=== PATIENT | female | born 1985 | race Caucasian/White ===

== ENCOUNTER 2016-11-25 15:02 | Outpatient (CLI) | payer MEDICAID | END 2016-11-25 15:03 | disposition home or self-care (01) | DX: D27.0 Benign neoplasm of right ovary (principal); N80.8 Other endometriosis ==

== ENCOUNTER 2017-01-21 09:15 | Emergency (ER) | payer MEDICAID | END 2017-01-21 11:21 | disposition home or self-care (01) | DX: H60.503 Unspecified acute noninfective otitis externa, bilateral (principal); Z87.891 Personal history of nicotine dependence ==

== ENCOUNTER 2017-02-26 14:02 | Emergency (ER) | payer MEDICAID ==
[2017-02-26] MEDS ORDERED: DEXAMETHASONE 10 MG/ML VIAL PO STA (15:10)
[2017-02-26] MEDS ORDERED: CHERRY SYRUP 10 ML UDC PO ONE (15:11)
[2017-02-26] MEDS ORDERED: DEXAMETHASONE 10 MG/ML VIAL ONE (15:11)
== END 2017-02-26 15:21 | disposition home or self-care (01) ==
DX: M23.91 Unspecified internal derangement of right knee (principal); J45.909 Unspecified asthma, uncomplicated; Z87.891 Personal history of nicotine dependence
CPT/HCPCS: 73564; 99283; A9270

== ENCOUNTER 2017-10-15 18:45 | Outpatient (CLI) | payer OTHER, MEDICAID | END 2017-10-15 18:46 | disposition critical access hospital (66) | LOC: EMS 18:45 | PROVIDERS: ATTEND Surgery | DX: R07.9 Chest pain, unspecified (principal); V89.2XXA Person injured in unspecified motor-vehicle accident, traffic, initial encounter; Y92.414 Local residential or business street as the place of occurrence of the external cause | CPT/HCPCS: A0425; A0429 ==

== ENCOUNTER 2017-10-15 19:07 | Emergency (ER) | payer OTHER, MEDICAID ==
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
[2017-10-15 22:13] VITALS: BP 118/68
--- NOTE | 2017-10-15 22:24 | XRAY Preliminary Report ---
Exam: XR CHEST 2 VIEW PA/LAT IMPRESSION: No acute abnormality. RADIA SITE ID: [id number]
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
== END 2017-10-15 22:12 | disposition home or self-care (01) ==
LOC: EDUNIT# → ED 19:07
DX: S20.219A Contusion of unspecified front wall of thorax, initial encounter (principal); V43.52XA Car driver injured in collision with other type car in traffic accident, initial encounter; Y92.488 Other paved roadways as the place of occurrence of the external cause
CPT/HCPCS: 71020; 99283

== ENCOUNTER 2017-12-19 13:51 | Emergency (ER) | payer MEDICAID ==
[2017-12-19 14:00] VITALS: BP 132/75
[2017-12-19] MEDS ORDERED: DEXAMETHASONE 10 MG/ML VIAL PO STA (14:14)
--- NOTE | 2017-12-19 14:17 | ED Physician Documentation ---
History of Present Illness - Stated complaint Stated Complaint: DIZZY - Chief complaint Chief Complaint: Neuro - History obtained from History obtained from: Patient - History of Present Illness Timing: How many days ago (3) - Additonal information Additional information: 32-year-old female has had a recent upper respiratory infection and felt that that is improved improving slightly she has had some persistent cough and now she has developed some acute dizziness. She is having this episodically and she has had some nausea associated with it. Review of Systems Constitutional: reports: Myalgias, Fatigue. denies: Fever Eyes: denies: Decreased vision Ears: denies: Ear pain Nose: reports: Rhinorrhea / runny nose, Congestion Throat: reports: Sore throat Cardiac: denies: Chest pain / pressure, Palpitations Respiratory: reports: Cough. denies: Dyspnea GI: reports: Nausea. denies: Abdominal Pain, Vomiting : denies: Dysuria, Frequency Skin: denies: Rash Musculoskeletal: denies: Neck pain, Back pain, Extremity pain Neurologic: reports: Headache (to the right parietal area a depression in the skull), Other (dizziness). 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: Oophrectomy - Present Medications Home Medications: Ambulatory Orders Medication Instructions Recorded Confirmed Azithromycin [Zithromax] 250 mg PO DAILY #6 tablet 12/19/17 Meclizine HCl [Motion Sickness 25 mg PO Q6HR PRN #20 tablet 12/19/17 Relief] - Allergies Allergies/Adverse Reactions: Allergies Allergy/AdvReac Type Severity Reaction Status Date / Time No Known Drug Allergies Allergy Verified 10/15/17 19:14 - Social History Does the pt smoke?: No Smoking Status: Never smoker Does the pt drink ETOH?: No Does the pt have substance abuse?: No - Immunizations Immunizations are current?: Yes - POLST Patient has POLST: No PD ED PE NORMAL - Vitals Vital signs reviewed: Yes (hypertensive) - General General: Alert and oriented X 3, No acute distress, Well developed/nourished - HEENT HEENT: Atraumatic, PERRL, EOMI, Pharynx benign, Other (inlfamation along the left umbo and not the right. 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, No motor deficit, No sensory deficit, Normal speech Eye Opening: Spontaneous Motor: Obeys Commands Verbal: Oriented GCS Score: 15 - Psych Psych: Normal mood, Normal affect Results - Vitals Vitals: Vital Signs - 24 hr 12/19/17 13:53 Temperature 36.2 C L Heart Rate 73 Respiratory 18 Rate Blood Pressure 132/75 H O2 Saturation 99 Oxygen O2 Source Room air - EKG (time done) 1403 Rate: Rate (enter#) (71) Rhythm: NSR Intervals: Wide QRS Compare to prior EKG: Old EKG unavailable Computer interpretation: Agree with computer PD MEDICAL DECISION MAKING - ED course Complexity details: reviewed old records, reviewed results, re-evaluated patient , considered differential, d/w patient ED course: 32-year-old female with a recent URI is now developed acute dizziness. She does have otitis on examination and this will be treated with dexamethasone and Zithromax and she is given some meclizine and a copy of Keith's maneuvers. Departure - Departure Disposition: 01 Home, Self Care Clinical Impression: Vertigo Otitis media Qualifiers: Otitis media type: suppurative Chronicity: acute Laterality: left Recurrence: not specified as recurrent Spontaneous tympanic membrane rupture: without spontaneous rupture Qualified Code(s): H66.002 - Acute suppurative otitis media without spontaneous rupture of ear drum, left ear Condition: Stable Instructions: ED Vertigo Unspecified, ED Otitis Media Acute Adult Follow-Up: Joao Sawant DO [Primary Care Provider] - Prescriptions: Meclizine HCl [Motion Sickness Relief] 25 mg PO Q6HR PRN #20 tablet PRN Reason: Dizziness Azithromycin [Zithromax] 250 mg PO DAILY #6 tablet
== END 2017-12-19 14:34 | disposition home or self-care (01) ==
LOC: ED 13:51
DX: R42 Dizziness and giddiness (principal); H66.002 Acute suppurative otitis media without spontaneous rupture of ear drum, left ear
CPT/HCPCS: 93005; 99283

== ENCOUNTER 2018-06-02 09:12 | Outpatient (CLI) | payer MEDICAID ==
--- NOTE | 2018-06-02 15:28 | Ultrasound Report ---
Procedure Date: 06/02/2018 Accession Number: [id number] / [id number] Procedure: US - Pelvic w/Transvaginal CPT Code: FULL RESULT: EXAM: PELVIC ULTRASOUND EXAM DATE: 06/02/2018 10:32 AM. CLINICAL HISTORY: BENIGN NEOPLASM OF RIGHT OVARY. COMPARISON: 08/23/2017. TECHNIQUE: Realtime transabdominal pelvic scan performed to identify the uterus and adnexa and as an overview of other pelvic structures, followed by transvaginal scan to provide greater detail of the uterus and adnexa, with static image documentation. FINDINGS: Uterus: 9.6 x 5.7 x 3.4 cm, volume 96.7 cc. Normal overall size and echotexture. Masses: None. Endometrium: 11 mm. Normal. Cervix: Trace fluid in the cervix. Right Ovary: 6.7 x 3.0 x 2.8 cm, volume 29 cc. Multiple complex nodules associated with the right ovary, the largest measuring 3.4 cm, grossly stable when compared to 08/23/17 US given differences in technique. Left oophorectomy. Free Fluid: Small. Other: None. IMPRESSION: Multiple complex nodules associated with right ovary, largest measuring 3.4 cm, grossly stable when compared to 08/23/17 US. RADIA
== END 2018-06-02 09:13 | disposition home or self-care (01) ==
LOC: DI 09:12
PROVIDERS: ATTEND Obstetrics & Gynecology
DX: D27.0 Benign neoplasm of right ovary (principal)
CPT/HCPCS: 76830; 76856

== ENCOUNTER 2018-09-10 14:27 | Outpatient (CLI) | payer MEDICAID ==
--- NOTE | 2018-09-11 12:33 | Ultrasound Report ---
Reason: ENCOUNTER FOR TEST,RESULT POSITIVE Procedure Date: 09/10/2018 Accession Number: [id number] / [id number] Procedure: US - OB First Trimester CPT Code: FULL RESULT: EXAM: FIRST TRIMESTER OBSTETRIC ULTRASOUND (Less than 11 weeks) EXAM DATE: 09/10/2018 03:16 PM. CLINICAL HISTORY: ENCOUNTER FOR TEST,RESULT POSITIVE. LMP: 07/14/2018. COMPARISONS: None. TECHNIQUE: Transabdominal and transvaginal ultrasound examination with static image documentation. CLINICAL DATES: EGA 8 weeks 2 days with GENNA 04/20/2019 based on last menstrual period. ASSESSMENT: Gestational Sac: Single intrauterine. Mean gestational sac diameter: 44 mm = 9 weeks 6 days. Embryo: CRL (crown-rump length) 19.5 mm = 8 weeks 4 days. Cardiac activity: 166 beats per minute. Yolk sac: 4.2 mm. Amniotic fluid: Not accurately assessed at this gestational age. Early placenta: Not visible at this gestational age. Other: There is a fundal perigestational fluid collection component measuring 1.8 x 1.0 x 0.9 cm on the left with the component on the right measuring 2.4 x 1.4 x 0.7 cm. MATERNAL STRUCTURES: Uterus: Anteverted. Unremarkable. Cervix: Closed. Right Ovary/Adnexa: The ovary measures 10.2 x 5.3 x 7.8 cm, volume 221 cc. The right ovary contains a partially calcified heterogeneous mass with an imaging appearance most consistent with dermoid/teratoma measuring up to 3.6 cm. Separately, a 3.9 x 3.6 x 3.7 cm endometrioma is demonstrated as is a cyst measuring up to 2.8 cm. Left Ovary/Adnexa: Not seen, reportedly surgically removed. Free Fluid: There is a small amount of free fluid. Other: None. IMPRESSION: 1. Single viable intrauterine at EGA 8 weeks 4 days with GENNA 04/18/2019 based on crown-rump length, which is concordant with clinical dates. 2. Assigned dating is GENNA 04/20/2019 based on last menstrual period. 3. Perigestational fluid collection as described. 4. Right adnexal masses including a suspected dermoid/teratoma, reportedly known endometrioma and simple appearing cyst. RADIA The above findings perigestational fluid collection and adnexal masses were discussed with the nurse of Naomi Duke by Dr. Dominick Varner at 12:31 hrs on 09/11/18.
== END 2018-09-10 14:28 | disposition home or self-care (01) ==
LOC: DI 14:27
PROVIDERS: ATTEND Obstetrics & Gynecology
DX: Z32.01 Encounter for pregnancy test, result positive (principal)
CPT/HCPCS: 76801; 76817

== ENCOUNTER 2018-09-28 08:47 | Outpatient (CLI) | payer MEDICAID ==
[2018-09-28 09:18] LABS: MUDS CUTOFF CONCENTRATIONS CUTOFF CONC BELOW:
[2018-09-28 09:23] LABS: BASOPHILS % (AUTO) 0.4 %; EOSINOPHILS # (AUTO) 0.2 10^3/uL (0.0-0.7); EOSINOPHILS % (AUTO) 1.4 %; HGB - HEMOGLOBIN 13.2 g/dL (12.0-16.0); LYMPHOCYTES % (AUTO) 16.8 %; MEAN CORPUSCULAR HEMOGLOBIN 30.3 pg (27.0-31.0); MEAN CORPUSCULAR HGB CONC 34.5 g/dL (32.0-36.0); MEAN PLATELET VOLUME 7.7 fL (7.9-10.8); MONOCYTES # (AUTO) 0.5 10^3/uL (0.0-1.0); MONOCYTES % (AUTO) 4.4 %; PLT - PLATELET COUNT 280 10^3/uL (130-450); RED BLOOD COUNT 4.36 10^6/uL (4.20-5.40); RED CELL DISTRIBUTION WIDTH 13.8 % (12.0-15.0); WHITE BLOOD COUNT 11.7 x10^3/uL (4.8-10.8)
[2018-09-28 09:33] LABS: BILIRUBIN,URINE NEGATIVE (NEGATIVE); GLUCOSE, URINE (UA) NEGATIVE (NEGATIVE); KETONES,URINE (UA) NEGATIVE (NEGATIVE); LEUKOCYTE ESTERASE, URINE SMALL (NEGATIVE); NITRITE,URINE NEGATIVE (NEGATIVE); OCCULT BLOOD,URINE NEGATIVE (NEGATIVE); PH,URINE 6.5 PH (5.0-7.5); PROTEIN,URINE NEGATIVE (NEGATIVE); UROBILINOGEN,URINE 0.2 (NORMAL) E.U./dL (NORMAL)
[2018-09-28 09:40] LABS: ALBUMIN 4.5 g/dL (3.2-5.5); ALBUMIN/GLOBULIN RATIO 1.3 (1.0-2.2); BILIRUBIN,TOTAL 0.7 mg/dL (0.2-1.0); CALCIUM 9.3 mg/dL (8.5-10.3); CREATININE 0.6 mg/dL (0.4-1.0); TOTAL PROTEIN 8.1 g/dL (6.7-8.2); URIC ACID 3.8 mg/dL (2.6-7.2)
[2018-09-28 09:44] LABS: BACTERIA,URINE Few /HPF (None Seen); CLARITY,URINE CLEAR (CLEAR); RBC,URINE 0-5 /HPF (0-5); SQUAMOUS EPITHELIAL CELL,UR FEW Squamous (<= Few)
[2018-09-28 09:45] LABS: AMPHETAMINE SCREEN,URINE NEGATIVE (NEGATIVE); BENZODIAZEPINES SCREEN, URINE NEGATIVE (NEGATIVE); COCAINE SCREEN URINE NEGATIVE (NEGATIVE); METHADONE SCREEN, URINE NEGATIVE (NEGATIVE); METHAMPHETAMINES SCREEN, URINE NEGATIVE (NEGATIVE); OPIATE SCREEN, URINE NEGATIVE (NEGATIVE); OXYCODONE SCREEN, URINE NEGATIVE (NEGATIVE); PROPOXYPHENE SCREEN, URINE NEGATIVE (NEGATIVE); TRICYCLIC ANTIDEPRESSANT,URINE NEGATIVE (NEGATIVE)
[2018-09-29 11:33] LABS: HEPATITIS C ANTIBODY NON-REACTIVE (NON-REACTIVE)
[2018-09-29 12:21] LABS: HEPATITIS B SURFACE ANTIGEN NON-REACTIVE (NON-REACTIVE)
[2018-09-29 16:06] LABS: HIV AG/AB 4TH GEN NON-REACTIVE (NON-REACTIVE)
== END 2018-09-28 08:48 | disposition home or self-care (01) ==
LOC: LAB 08:47
PROVIDERS: ATTEND Obstetrics & Gynecology
DX: O09.899 Supervision of other high risk pregnancies, unspecified trimester (principal); Z36.9 Encounter for antenatal screening, unspecified
CPT/HCPCS: 36415; 80053; 80306; 81001; 81599; 84550; 85025; 86592; 86762; 86803; 86850; 86900; 86901; 87086; 87340; 87389

== ENCOUNTER 2018-12-07 13:30 | Outpatient (CLI) | payer MEDICAID ==
--- NOTE | 2018-12-08 14:20 | Ultrasound Report ---
Reason: SUPERVISION OF OTHER HIGH RISK ,UNSPECIFI Procedure Date: 12/07/2018 Accession Number: [id number] / [id number] Procedure: US - OB Detailed Eval CPT Code: FULL RESULT: EXAM: COMPLETE OBSTETRICAL ULTRASOUND EXAM DATE: 12/07/2018 01:58 PM. CLINICAL HISTORY: anatomic survey. COMPARISON: First trimester OB ultrasound 09/10/2018.. TECHNIQUE: Real-time sonographic evaluation of the fetus performed by the cable installation manager. Multiple desk representative static images were saved for review. DATING: Established EGA 20 weeks 6 days with GENNA 04/20/2019 based on physician stated dating. EGA 20 weeks 6 days with GENNA 04/20/2019 based on LMP. EGA 22 weeks 1 day with GENNA 04/11/2019 based on the current ultrasound. GENERAL EVALUATION Cook . Cardiac activity: 132 bpm. movement: Visualized. Presentation: Variable. Placenta: Right posterior position. No evidence for previa. Umbilical cord: 3 vessel cord. Central placental cord origin. Amniotic fluid: Subjectively normal. MVP 4.6 cm. ASHLEY: 16.62. BIOMETRY Bi-Parietal Diameter (BPD): 5.32 cm, 22 weeks 1 day. Head Circumference (HC): 20.96 cm, 23 weeks 0 days. Abdominal Circumference (AC): 17.61 cm, 22 weeks 3 days. Femur Length (FL): 3.54 cm, 21 weeks 1 days. Estimated Weight: 471 g, 94 percentile for weeks/days. ANATOMY The intracranial structures, profile, face/nose/lips, spine, 4 chamber heart and outflow tracts, stomach, abdominal wall and cord insertion, diaphragm, kidneys, bladder, and extremities were visualized and demonstrate no abnormality. MATERNAL STRUCTURES Uterus: Unremarkable. Cervix: Long and closed. Transabdominal length 5.64 cm. Right ovary/adnexa: Unremarkable. Left ovary/adnexa: Unremarkable. Free fluid: None. IMPRESSION: 1. Cook live intrauterine with gestational age 20 weeks 6 days based on physician stated assigned dating and LMP. 2. Estimated weight is at the 94th percentile for assigned dating. size is greater than expected for gestational age. The fetus is at risk for macrosomia. 3. Normal anatomic survey. No anatomic abnormalities are detected at this time. RADIA
== END 2018-12-07 13:31 | disposition home or self-care (01) ==
LOC: DI 13:30
PROVIDERS: ATTEND Obstetrics & Gynecology
DX: O09.899 Supervision of other high risk pregnancies, unspecified trimester (principal)
CPT/HCPCS: 76811

== ENCOUNTER 2018-12-31 07:53 | Outpatient (CLI) | payer MEDICAID ==
[2018-12-31 08:18] LABS: HGB - HEMOGLOBIN 12.2 g/dL (12.0-16.0); MEAN CORPUSCULAR HEMOGLOBIN 29.8 pg (27.0-31.0); MEAN CORPUSCULAR HGB CONC 34.2 g/dL (32.0-36.0); MEAN CORPUSCULAR VOLUME 87.1 fL (81.0-99.0); MEAN PLATELET VOLUME 7.7 fL (7.9-10.8); RED BLOOD COUNT 4.1 10^6/uL (4.20-5.40); RED CELL DISTRIBUTION WIDTH 14.6 % (12.0-15.0)
[2018-12-31 08:34] LABS: HB2 TOTAL 13.4 g/dL; HEMOGLOBIN A1C 0.36 g/dL; HEMOGLOBIN A1C % 4.6 % (4.6-6.2)
== END 2018-12-31 07:54 | disposition home or self-care (01) ==
LOC: LAB 07:53
PROVIDERS: ATTEND Obstetrics & Gynecology
DX: Z34.80 Encounter for supervision of other normal pregnancy, unspecified trimester (principal)
CPT/HCPCS: 36415; 82951; 82952; 83036; 85027; 86850

== ENCOUNTER 2019-02-22 16:03 | Outpatient (CLI) | payer MEDICAID ==
[2019-02-22 16:37] LABS: CREATININE,URINE 42.3 mg/dL; PROTEIN/CREATININE RATIO,URINE 0.2 (<=0.2)
== END 2019-02-22 16:04 | disposition home or self-care (01) ==
LOC: LAB 16:03
PROVIDERS: ATTEND Obstetrics & Gynecology
DX: Z36.8A Encounter for antenatal screening for other genetic defects (principal); O09.93 Supervision of high risk pregnancy, unspecified, third trimester
CPT/HCPCS: 36415; 81220; 81243; 81329; 81599; 82570; 84156

== ENCOUNTER 2019-09-06 09:50 | Outpatient (CLI) | payer MEDICAID ==
[2019-09-06] MEDS ORDERED: GADOBUTROL 15 MMOL/15 ML VIAL ONE (10:34)
[2019-09-06] MEDS ORDERED: GADOBUTROL 15 MMOL/15 ML VIAL IVP ONE (10:58)
--- NOTE | 2019-09-06 13:37 | MRI Report ---
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 CLINICAL HISTORY: Headache. Gorlin syndrome. COMPARISON: None. TECHNIQUE: Multiplanar, multisequence T1-weighted and fluid-sensitive MR sequences of the brain were performed before and after administration of intravenous contrast. Sequences optimized for routine evaluation. Other: None. IV Contrast: Without and with 12.5 mL IV Gadavist. FINDINGS: Brain Volume: Normal for age. Parenchyma: No restricted diffusion to suggest acute or recent ischemic infarct and no evidence for cerebral hemorrhage, mass effect or midline shift. Hypointensity and mild thickening of the tentorium which may represent dural calcifications. Chronic linear foci of encephalomalacia in the left posterior cerebellum are present consistent with at least 3 or 4 small foci of chronic ischemic infarct. No midline developmental anomaly. Intact corpus callosum. No Chiari malformation. There are 6 or 7 scattered punctate foci of nonspecific white matter T2 hyperintensity in the frontal lobes, nonspecific changes which may represent chronic post inflammatory or post ischemic gliosis. Cerebral white matter otherwise appears unremarkable. No intracranial enhancing solid mass. No abnormal brain parenchymal enhancement. 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 Ventricles/Cisterns: No hydrocephalus. No abnormal extra-axial fluid collection or hemorrhage. Orbits: Symmetric and unremarkable. Sella Turcica: 5 mm T2 hyperintensity with hypoenhancement or nonenhancement at the posterior aspect of the pituitary on the left without significant mass effect. Significance is uncertain. This could be a small incidental cyst or microadenoma. No adverse local mass effect, findings in the region of the pituitary fossa, suprasellar cistern and cavernous sinuses otherwise appear unremarkable. IAC: Symmetric and unremarkable. Vasculature: Normal signal flow void is seen in the major arterial structures at the skull base. The dural sinuses are patent and enhance normally. Sinuses: Prominent retention cyst in the inferior right maxillary sinus. Bones: Circumscribed fluid signal cyst or cyst-like structure up to 1.5 cm in the left mandible. This is not fully characterized on this study, however. Other: None. IMPRESSION: 1. No acute intracranial abnormality. 2. 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 3. 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 4. Up to 5 mm lesion of the left posterior pituitary that may be a cyst or microadenoma. 5. Probable up to 1.5 cm cyst of the left posterior mandible. 6. Right inferior maxillary retention cyst. RADIA
== END 2019-09-06 09:51 | disposition home or self-care (01) ==
LOC: DI 09:50
PROVIDERS: ATTEND Family Medicine
DX: E23.7 Disorder of pituitary gland, unspecified (principal); J34.1 Cyst and mucocele of nose and nasal sinus; Z86.73 Personal history of transient ischemic attack (TIA), and cerebral infarction without residual deficits
CPT/HCPCS: 70553; A9585

== ENCOUNTER 2020-02-15 07:28 | Emergency (ER) | payer MEDICAID ==
[2020-02-15 07:43] VITALS: BP 136/89
--- NOTE | 2020-02-15 07:56 | ED Physician Documentation ---
PD HPI LOWER EXT INJURY - Stated complaint Stated Complaint: RT FOOT INJURY - Chief complaint Chief Complaint: Trauma Ext - History obtained from History obtained from: Patient - History of Present Illness PD HPI LOW EXT INJURY LOCATION: Right, Foot Type of injury: Fall, Twist Where injury occurred: Home Timing - onset: Last night Timing - duration: Hours Timing - details: Abrupt onset, Still present Improved by: Rest, Immobilization Worsened by: Moving, Palpating Associated symptoms: No: Weakness, Numbness, Tingling, Swelling Contributing factors: No: Anticoagulated Similar symptoms before: Has not had sx before Recently seen: Not recently seen - Additional information Additional information: 34-year-old female was in her home last night when she was attempting to protect her From her Citizen [place] bulldog puppy she stood up and tripped falling onto her extended right foot on the lateral aspect. She feels that she strained her foot and has pain across the sole of her foot starting from the lateral aspect of the foot. She is able to bear some weight on this with pain. Her level of pain without weightbearing is tolerable. 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 - Present Medications Home Medications: Ambulatory Orders Medication Instructions Recorded Confirmed Azithromycin [Zithromax] 250 mg PO DAILY #6 tablet 12/19/17 Meclizine HCl [Motion Sickness 25 mg PO Q6HR PRN #20 tablet 12/19/17 Relief] - Allergies Allergies/Adverse Reactions: Allergies Allergy/AdvReac Type Severity Reaction Status Date / Time No Known Drug Allergies Allergy Verified 02/15/20 07:43 - Social History Does the pt smoke?: No Smoking Status: Never smoker Does the pt drink ETOH?: No Does the pt have substance abuse?: No - Immunizations Immunizations are current?: Yes - POLST Patient has POLST: No PD ED PE NORMAL - Vitals Vital signs reviewed: Yes (hypertensive ) - General General: Alert and oriented X 3, No acute distress, Well developed/nourished - HEENT HEENT: Atraumatic, PERRL, EOMI - Respiratory Respiratory: No respiratory distress - Derm Derm: Normal color, Warm and dry, No rash - Extremities Extremities: Other (There is no tenderness to the proximal 5th metatarsal. There is no swelling appreciated. There is some tenderness to the mid/distal shaft of the 5th and extending to the sole of the foot (R)) - Neuro Neuro: Alert and oriented X 3, spinning room worker 2-12 intact, No motor deficit, No sensory deficit, Normal speech Eye Opening: Spontaneous Motor: Obeys Commands Verbal: Oriented GCS Score: 15 - Psych Psych: Normal mood, Normal affect Results - Vitals Vitals: Vital Signs - 24 hr 02/15/20 07:37 Temperature 36.8 C Heart Rate 91 Respiratory 16 Rate Blood Pressure 136/89 H O2 Saturation 98 Oxygen O2 Source Room air - Rads (name of study) foot Radiology: Prelim report reviewed (Impression: 1. No acute fracture. 2 Prior fusion of the navicular and medial cuneiform with no evidence of hardware failure or loosening.), EMP read indepedently, See rad report PD MEDICAL DECISION MAKING - ED course Complexity details: reviewed old records, reviewed results, re-evaluated patient, considered differential, d/w patient ED course: 34-year-old female with a twisting injury to her right foot is no evidence of fracture on her previously operated foot. She is diagnosed with a sprain and placed into a walking boot. Departure - Departure Disposition: 01 Home, Self Care Clinical Impression: Sprain of right foot Qualifiers: Encounter type: initial encounter Qualified Code(s): S93.601A - Unspecified sprain of right foot, initial encounter Condition: Stable Instructions: ED Sprain Foot Follow-Up: Joao Sawant DO [Primary Care Provider] - Discharge Date/Time: 02/15/20 08:47
--- NOTE | 2020-02-15 08:47 | XRAY Report ---
Reason: extention injury to lateral foot Procedure Date: 02/15/2020 Accession Number: [id number] / [id number] Procedure: XR - Foot 3 View RT CPT Code: Final Report FULL RESULT: EXAM: RIGHT FOOT RADIOGRAPHY EXAM DATE: 02/15/2020 08:06 AM. CLINICAL HISTORY: Extention injury to lateral foot. COMPARISON: None. TECHNIQUE: 3 views. FINDINGS: Bones: Normal. No fractures or bone lesions. Joints: Fusion of the navicular and medial cuneiform with [address] Moderate degenerative changes at the calcaneal cuboid joint. Soft Tissues: Normal. No soft tissue swelling. IMPRESSION: 1. No acute fracture. 2. Prior fusion of the navicular and medial cuneiform with no evidence of hardware failure or loosening. RADIA
== END 2020-02-15 08:47 | disposition home or self-care (01) ==
LOC: ED 07:28
DX: S93.601A Unspecified sprain of right foot, initial encounter (principal); W01.0XXA Fall on same level from slipping, tripping and stumbling without subsequent striking against object, initial encounter; Y92.009 Unspecified place in unspecified non-institutional (private) residence as the place of occurrence of the external cause
CPT/HCPCS: 99282; 99283

== ENCOUNTER 2020-05-20 10:59 | Outpatient (CLI) | payer MEDICAID ==
[2020-05-20 11:45] LABS: THYROID STIMULATING HORMONE 1.47 uIU/mL (0.34-5.60)
[2020-05-20 11:47] LABS: HB2 TOTAL 13.5 g/dL; HEMOGLOBIN A1C 0.49 g/dL; HEMOGLOBIN A1C % 5.5 % (4.6-6.2)
[2020-05-20 11:53] LABS: CHOL/HDL RATIO 5.6 (<4.4); CHOLESTEROL 214 mg/dL; HDL CHOLESTEROL 38 mg/dL; LDL CHOLESTEROL,CALCULATED 125 mg/dL; LDL/HDL RATIO 3.3 (<4.4); VLDL CHOLESTEROL 51 mg/dL
[2020-05-20 12:14] LABS: FOLLICLE STIMULATING HORMONE 7.97 mIU/mL
== END 2020-05-20 11:00 | disposition home or self-care (01) ==
LOC: LAB 10:59
PROVIDERS: ATTEND Obstetrics & Gynecology
DX: N92.6 Irregular menstruation, unspecified (principal); E66.9 Obesity, unspecified
CPT/HCPCS: 36415; 80061; 83001; 83036; 83721; 84443

== ENCOUNTER 2020-06-02 08:05 | Outpatient (CLI) | payer MEDICAID ==
[2020-06-02 08:39] LABS: CHOL/HDL RATIO 5.7 (<4.4); CHOLESTEROL 211 mg/dL; HDL CHOLESTEROL 37 mg/dL; LDL CHOLESTEROL,CALCULATED 137 mg/dL; LDL/HDL RATIO 3.7 (<4.4); VLDL CHOLESTEROL 37 mg/dL
== END 2020-06-02 08:06 | disposition home or self-care (01) ==
LOC: LAB 08:05
PROVIDERS: ATTEND Obstetrics & Gynecology
DX: Z00.01 Encounter for general adult medical examination with abnormal findings (principal)
CPT/HCPCS: 36415; 80061; 83721

== ENCOUNTER 2020-06-09 15:37 | Outpatient (CLI) | payer MEDICAID ==
--- NOTE | 2020-06-09 17:31 | Ultrasound Report ---
PROCEDURE: Pelvic w/Transvaginal INDICATIONS: IRREGULAR MENSES TECHNIQUE: Real-time scanning was performed of the pelvic organs, with image documentation. Additional endovagi nal scanning was necessary due to incomplete visualization of the adnexal and endometrial structures by transabdominal scanning. COMPARISON: Pelvic ultrasound 06/02/2018 FINDINGS: Transabdominal scanning: Limited scanning through the kidneys shows no hydronephrosis. No pathologi c free abdominal or pelvic fluid. Endovaginal scanning: Uterus: Uterus is normal in size at 9.2 x 4.1 x 6.0 cm. The endometrium measures 7 mm in combined t hickness. Adjacent calcification is present measuring 4 x 3 x 4 mm. Ovaries: Right ovary measures 5.0 x 3.2 x 4.7 cm. There are multiple solid-appearing foci of echogen icity the largest measuring 2.2 x 1.5 x 1.8 cm. The left ovary has been removed. IMPRESSION: Multiple solid-appearing masses within the right ovary as above. These can represent areas of endomet rioma or potentially complex hemorrhagic cyst. No priors are available for comparison. Short interval imaging follow-up in 6 weeks is recommended for further evaluation. Reviewed by: Kristin Leblanc MD on 06/09/2020 5:30 PM PDT Approved by: Kristin Leblanc MD on 06/09/2020 5:30 PM PDT Station ID: [id number]
== END 2020-06-09 15:38 | disposition home or self-care (01) ==
LOC: DI 15:37
PROVIDERS: ATTEND Obstetrics & Gynecology
DX: R93.89 Abnormal findings on diagnostic imaging of other specified body structures (principal)
CPT/HCPCS: 76830; 76856

== ENCOUNTER 2020-10-08 10:53 | Emergency (ER) | payer MEDICAID ==
--- NOTE | 2020-10-08 11:20 | ED Physician Documentation ---
PD HPI HEENT - Stated complaint Stated Complaint: DIZZINESS - Chief complaint Chief Complaint: General - History obtained from History obtained from: Patient - History of Present Illness Timing - onset: Yesterday Timing - duration: Days (2) Timing - details: Gradual onset, Still present Location: Right ear Improves: Other (holding still) Worsens: Position (moving head) Associated symptoms: Other (some decreased hearing right ear.). No: Fever, Congestion, Swollen nodes, Facial swelling Similar symptoms before: Diagnosis (ear infection) Recently seen: Not recently seen Review of Systems Constitutional: denies: Fever, Chills Eyes: denies: Decreased vision, Photophobia Ears: reports: Loss of hearing. denies: Drainage/discharge, Tinnitus/ringing Nose: denies: Rhinorrhea / runny nose, Congestion, Sinus pressure / pain GI: reports: Nausea. 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 - Present Medications Home Medications: Ambulatory Orders Medication Instructions Recorded Confirmed Azithromycin [Zithromax] 250 mg PO DAILY #6 tablet 12/19/17 Meclizine HCl [Motion Sickness 25 mg PO Q6HR PRN #20 tablet 12/19/17 Relief] Amoxicillin 500 mg PO TID #21 capsule 10/08/20 Cetirizine [ZyrTEC] 10 mg PO DAILY #15 tablet 10/08/20 Meclizine HCl [Antivert] 25 mg PO Q8H PRN #20 tablet 10/08/20 dexAMETHasone [Decadron] 4 mg PO DAILY #5 tablet 10/08/20 - Allergies Allergies/Adverse Reactions: Allergies Allergy/AdvReac Type Severity Reaction Status Date / Time No Known Drug Allergies Allergy Verified 10/08/20 11:02 - Social History Does the pt smoke?: No Smoking Status: Never smoker Does the pt drink ETOH?: No Does the pt have substance abuse?: No - Immunizations Immunizations are current?: Yes - POLST Patient has POLST: No PD ED PE NORMAL - Vitals Vital signs reviewed: Yes - General General: Alert and oriented X 3, No acute distress, Well developed/nourished - HEENT HEENT: PERRL, EOMI (with some nystagmus to the right.), Pharynx benign. No: Ears normal (left is okay; right with fluid behind the TM and also some redness of it. No perforation nor drainage. No tenderness to the mastoid area.) Results - Vitals Vitals: Vital Signs - 24 hr 10/08/20 10/08/20 10:56 12:59 Temperature 36.6 C Heart Rate 72 70 Respiratory 16 18 Rate Blood Pressure 116/77 115/68 O2 Saturation 98 99 Oxygen O2 Source Room air PD MEDICAL DECISION MAKING - ED course Complexity details: considered differential (has OM and presume this is related to some pressure in the inner ear and then the vertigo. ), d/w patient Departure - Departure Disposition: 01 Home, Self Care Clinical Impression: Otitis media, Positional vertigo Condition: Stable Instructions: ED Otitis Media Acute Adult, ED Vertigo Unspecified Follow-Up: Joao aSwant DO [Primary Care Provider] - Prescriptions: Amoxicillin 500 mg PO TID #21 capsule Meclizine HCl [Antivert] 25 mg PO Q8H PRN #20 tablet PRN Reason: Vertigo dexAMETHasone [Decadron] 4 mg PO DAILY #5 tablet Cetirizine [ZyrTEC] 10 mg PO DAILY #15 tablet Comments: It does look like some redness and swelling of the right eardrum. We will treat this as an early infection and fluid buildup. This can easily be affecting your inner ear causing your vertigo as well. Meclizine every 6-8 hours if needed for vertigo/dizziness. Amoxicillin 3 times a day for a week and Decadron daily for 5 more days. Cetirizine antihistamine daily for a week or 2. These are all meant to decrease the infection and inflammation and fluid in the middle and inner ears to decrease your symptoms. I would anticipate improvement in your symptoms over the next several days and resolved over 3 to 5 days. Recheck if not improving in that timeframe. Discharge Date/Time: 10/08/20 12:59
[2020-10-08] MEDS ORDERED: AMOXICILLIN 250 MG CAPSULE PO STA (12:10)
[2020-10-08] MEDS ORDERED: DEXAMETHASONE 10 MG/ML VIAL PO STA (12:10)
[2020-10-08] MEDS ORDERED: CETIRIZINE 10 MG TABLET PO STA (12:10)
[2020-10-08] MEDS ORDERED: MECLIZINE 12.5 MG TABLET PO STA (12:10)
[2020-10-08] MEDS ORDERED: CHERRY SYRUP 10 ML UDC PO ONE (12:10)
[2020-10-08 12:59] VITALS: BP 115/68
== END 2020-10-08 12:59 | disposition home or self-care (01) ==
LOC: ED 10:53
DX: H66.91 Otitis media, unspecified, right ear (principal); R42 Dizziness and giddiness
CPT/HCPCS: 99283; 99284; A9270

== ENCOUNTER 2020-12-31 15:19 | Outpatient (CLI) | payer MEDICAID ==
--- NOTE | 2021-01-01 08:52 | Ultrasound Report ---
PROCEDURE: Pelvic w/Transvaginal INDICATIONS: PELVIC MASS Additional history: Gorlin syndrome. TECHNIQUE: Real-time scanning was performed of the pelvic organs, with image documentation. Additional endovagi nal scanning was necessary due to incomplete visualization of the adnexal and endometrial structures by transabdominal scanning. COMPARISON: Pelvic ultrasound 06/09/2020, 06/02/2018. FINDINGS: Small amount of free fluid in the pelvis. Uterus: Uterus is anteverted and normal in size at 9.2 x 6.6 x 4.6 cm, volume of 145 cc. No fibroid s seen. The endometrium measures 12 mm in combined thickness. Echogenic focus without posterior acous tic shadowing within the endometrium measuring 4 mm. This likely represents a small calcification and appears unchanged. Ovaries: Right ovary measures 4.7 x 3.9 x 2.8 cm, volume of 27 cc. 1) Anechoic cyst measuring 2.1 cm. 2) Irregular crenulated appearing cyst measuring 2.2 cm. 3) Solid and cystic mass measuring at 2.9 x 2.3 x 1.5 cm. Internal calcifications. 4) Predominately solid mass measuring 2.9 x 2.6 x 2.5 cm. Internal calcifications. 5) Right adnexa or exophytic ovarian solid mass measuring 3.6 x 3.6 x 3.2 cm. Internal calcifications . Left ovary is surgically absent. Left adnexa is unremarkable. IMPRESSION: 1. Several right ovarian masses and cysts are again seen. Largest mass measures approximately 3.6 cm. It is difficult to directly compare these lesions due to shadowing from internal calcifications. -If clinically indicated MRI of the pelvis with IV contrast could be performed for further characteri zation. 2. Left ovary is surgically absent. 3. Endometrium measures 12 mm. Reviewed by: Seun Meadows MD on 01/01/2021 8:51 AM PST Approved by: Seun Meadows MD on 01/01/2021 8:51 AM PST Station ID: [id number]
== END 2020-12-31 15:20 | disposition home or self-care (01) ==
LOC: DI 15:19
PROVIDERS: ATTEND Obstetrics & Gynecology Gynecologic Oncology
DX: R19.00 Intra-abdominal and pelvic swelling, mass and lump, unspecified site (principal); N83.201 Unspecified ovarian cyst, right side; N83.8 Other noninflammatory disorders of ovary, fallopian tube and broad ligament

== ENCOUNTER 2022-01-13 08:50 | Emergency (ER) | payer MEDICAID ==
[2022-01-13 08:58] VITALS: BP 122/96
--- NOTE | 2022-01-13 09:01 | ED Physician Documentation ---
History of Present Illness - Stated complaint Stated Complaint: EAR PX - Chief complaint Chief Complaint: Heent - History obtained from History obtained from: Patient - Additonal information Additional information: About a weeks now worth of bilateral ear pain and vertigo especially if she lays with her right ear down. There is full feeling in her ears. No URI symptoms. Similar episodes previously with otitis media and otitis externa. She tried meclizine for the vertigo but It makes her odom. 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 - Present Medications Home Medications: Ambulatory Orders Medication Instructions Recorded Confirmed Azithromycin [Zithromax] 250 mg PO DAILY #6 tablet 12/19/17 Meclizine HCl [Motion Sickness 25 mg PO Q6HR PRN #20 tablet 12/19/17 Relief] Amoxicillin 500 mg PO TID #21 capsule 10/08/20 Cetirizine [ZyrTEC] 10 mg PO DAILY #15 tablet 10/08/20 Meclizine HCl [Antivert] 25 mg PO Q8H PRN #20 tablet 10/08/20 dexAMETHasone [Decadron] 4 mg PO DAILY #5 tablet 10/08/20 Metoclopramide [Reglan] 10 mg PO Q6H PRN #20 tablet 01/13/22 Neomycin/Polymyx/Hc Otic Drops 4 drops OT TID #1 bottle 01/13/22 [Cortisporin Ear Susp] - Allergies Allergies/Adverse Reactions: Allergies Allergy/AdvReac Type Severity Reaction Status Date / Time No Known Drug Allergies Allergy Verified 01/13/22 08:56 - Social History Does the pt smoke?: No Smoking Status: Never smoker Does the pt drink ETOH?: No Does the pt have substance abuse?: No - Immunizations Immunizations are current?: Yes - POLST Patient has POLST: No PD ED PE NORMAL - Vitals Vital signs reviewed: Yes - General General: Alert and oriented X 3, No acute distress - HEENT HEENT: PERRL, EOMI, Other (TMs appear normal bilaterally, mild otitis externa bilaterally potentially left slightly worse than right. No significant closure of the canals though.) - Neck Neck: Supple, no meningeal sign, No bony TTP - Neuro Neuro: Alert and oriented X 3, Normal speech - Psych Psych: Normal mood, Normal affect Results - Vitals Vitals: Vital Signs - 24 hr 01/13/22 08:57 Temperature 37.1 C Heart Rate 77 Respiratory 18 Rate Blood Pressure 122/96 H O2 Saturation 97 Oxygen O2 Source Room air Departure - Departure Disposition: Home, Self Care Clinical Impression: Vertigo Otitis externa Qualifiers: Otitis externa type: unspecified type Chronicity: acute Laterality: bilateral Qualified Code(s): H60.503 - Unspecified acute noninfective otitis externa, bilateral Condition: Good Record reviewed to determine appropriate education?: Yes Instructions: ED Vertigo Unspecified, ED Otitis Externa Prescriptions: Neomycin/Polymyx/Hc Otic Drops [Cortisporin Ear Susp] 4 drops OT TID #1 bottle Metoclopramide [Reglan] 10 mg PO Q6H PRN #20 tablet PRN Reason: Vertigo Comments: I sent your prescriptions electronically to [facility] in [place]. You can take the metoclopramide as needed for vertigo, the eardrops should kick in after the first few days and the vertigo should get better at that point. Return for new or worsening symptoms.
== END 2022-01-13 09:08 | disposition home or self-care (01) ==
LOC: ED 08:50
DX: H60.503 Unspecified acute noninfective otitis externa, bilateral (principal); R42 Dizziness and giddiness
CPT/HCPCS: 99282

== ENCOUNTER 2022-02-28 08:52 | Emergency (ER) | payer MEDICAID ==
[2022-02-28 09:01] VITALS: BP 152/101
--- NOTE | 2022-02-28 09:17 | ED Physician Documentation ---
History of Present Illness - Stated complaint Stated Complaint: DIZZINESS/EAR PX - Chief complaint Chief Complaint: Heent - History obtained from History obtained from: Patient - History of Present Illness Timing: How many days ago (2-3) Pain level max: 3 Pain level now: 3 - Additonal information Additional information: Patient is a 36-year-old female who presents to the emergency department complaining of bilateral ear fullness. She states that she has had recurrent vertigo as well. Worse with movement, better with rest. No nausea, vomiting or diarrhea. No abdominal pain. Patient is not . She states that this is happened 4-5 times in the past year. Has not seen ENT. No fevers. No chills. No trauma. No headaches. 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: Oophrectomy - Present Medications Home Medications: Ambulatory Orders Medication Instructions Recorded Confirmed Azithromycin [Zithromax] 250 mg PO DAILY #6 tablet 12/19/17 Meclizine HCl [Motion Sickness 25 mg PO Q6HR PRN #20 tablet 12/19/17 Relief] Amoxicillin 500 mg PO TID #21 capsule 10/08/20 Cetirizine [ZyrTEC] 10 mg PO DAILY #15 tablet 10/08/20 Meclizine HCl [Antivert] 25 mg PO Q8H PRN #20 tablet 10/08/20 dexAMETHasone [Decadron] 4 mg PO DAILY #5 tablet 10/08/20 Metoclopramide [Reglan] 10 mg PO Q6H PRN #20 tablet 02/28/22 Neomycin/Polymyx/Hc Otic Drops 4 drops OT TID #1 bottle 02/28/22 [Cortisporin Ear Susp] - Allergies Allergies/Adverse Reactions: Allergies Allergy/AdvReac Type Severity Reaction Status Date / Time adhesive AdvReac Itching Verified 02/28/22 09:01 chlorhexidine AdvReac Unknown Verified 02/28/22 09:01 [From Hibiclens] - Social History Does the pt smoke?: No Smoking Status: Never smoker Does the pt drink ETOH?: No Does the pt have substance abuse?: No - Immunizations Immunizations are current?: Yes - POLST Patient has POLST: No PD ED PE NORMAL - Vitals Vital signs reviewed: Yes - General General: Alert and oriented X 3, No acute distress, Well developed/nourished - HEENT HEENT: PERRL, Moist mucous membranes, Other (Left ear is normal. Including normal TM. The right ear has a white drainage in the canal. the TM appears normal.) - Neck Neck: Supple, no meningeal sign - Cardiac Cardiac: RRR - Respiratory Respiratory: No respiratory distress - Derm Derm: Warm and dry - Neuro Neuro: Alert and oriented X 3 - Psych Psych: Normal mood, Normal affect Results - Vitals Vitals: Vital Signs - 24 hr 02/28/22 08:59 Temperature 36.8 C Heart Rate 102 H Respiratory 16 Rate Blood Pressure 152/101 H O2 Saturation 98 Oxygen O2 Source Room air PD MEDICAL DECISION MAKING - ED course Complexity details: considered differential, d/w patient ED course: 36-year-old female presents to the emergency department with what appears to be a right acute otitis externa. This is a chronic ongoing issue for her. We will place her back on otic antibiotics as well as Reglan for the vertigo as this seems to work well for her. Recommend that she follow-up with ENT for further care. Patient counseled regarding signs and symptoms for which I believe and urgent re-evaluation would be necessary. Patient with good understanding of and agreement to plan and is comfortable going home at this time This document was made in part using voice recognition software. While efforts are made to proofread this document, sound alike and grammatical errors may occur. Departure - Departure Disposition: Home, Self Care Clinical Impression: Vertigo Otitis externa Qualifiers: Otitis externa type: unspecified type Chronicity: acute Laterality: bilateral Qualified Code(s): H60.503 - Unspecified acute noninfective otitis externa, bilateral Condition: Good Instructions: ED Otitis Externa Follow-Up: [facility] [Provider Group] [facility] [Provider Group] Prescriptions: Neomycin/Polymyx/Hc Otic Drops [Cortisporin Ear Susp] 4 drops OT TID #1 bottle Metoclopramide [Reglan] 10 mg PO Q6H PRN #20 tablet PRN Reason: Vertigo Comments: Your [facility] in [place]. Please take all medication until gone. Return if you worsen. Please follow-up with ENT for further care. Discharge Date/Time: 02/28/22 09:27
== END 2022-02-28 09:27 | disposition home or self-care (01) ==
LOC: ED 08:52
DX: H60.503 Unspecified acute noninfective otitis externa, bilateral (principal); R42 Dizziness and giddiness
CPT/HCPCS: 99282; 99284

== ENCOUNTER 2023-02-03 08:00 | Outpatient (CLI) | payer MEDICAID ==
[2023-02-03 15:49] LABS: BILIRUBIN,URINE NEGATIVE (NEGATIVE); GLUCOSE, URINE (UA) NEGATIVE (NEGATIVE); KETONES,URINE (UA) NEGATIVE (NEGATIVE); LEUKOCYTE ESTERASE, URINE NEGATIVE (NEGATIVE); NITRITE,URINE NEGATIVE (NEGATIVE); OCCULT BLOOD,URINE NEGATIVE (NEGATIVE); PROTEIN,URINE NEGATIVE (NEGATIVE); UROBILINOGEN,URINE 1 (NORMAL) E.U./dL (NORMAL)
[2023-02-03 15:53] LABS: CLARITY,URINE CLEAR (CLEAR)
[2023-02-03 16:08] LABS: BACTERIA,URINE None Seen /HPF (None Seen); RBC,URINE None Seen /HPF (0-5); SQUAMOUS EPITHELIAL CELL,UR MOD Squamous (<= Few); WBC,URINE 0-3 /HPF (0-5)
== END 2023-02-03 23:59 | disposition home or self-care (01) ==
LOC: LAB 08:00
PROVIDERS: ATTEND Nurse Practitioner
DX: R30.0 Dysuria (principal)
CPT/HCPCS: 81001; 87086

== ENCOUNTER 2023-03-08 10:37 | Outpatient (CLI) | payer MEDICAID ==
--- NOTE | 2023-03-09 12:27 | Mammography Report ---
BILATERAL DIGITAL DIAGNOSTIC MAMMOGRAM 3D/2D: 03/08/2023 CLINICAL: Diffuse right breast pain. Baseline exam. No prior exams were available for comparison. There are scattered areas of fibroglandular density in both breasts (category b / 25%-50% glandular t issue). There are benign diffuse calcifications in both breasts. No significant masses, calcifications, or other findings are seen in either breast. IMPRESSION: BENIGN There is no mammographic evidence of malignancy. Diffuse right breast pain. Exam findings were conveyed to the patient. Patient is advised to monitor for significant change. Clinical follow-up as needed. A 1 year screening mammogram is recommended. Based on the Tyrer Cuzick model (a risk assessment model) the patients lifetime risk is 9.3% and her 10 year risk is 0.9%. According to the ACR, ACS, and NCCN guidelines, an annual breast MRI exam dahiana g with mammogram is recommended if the patients lifetime risk is 20% or greater. This exam was interpreted at Station ID: [id number]. NOTE: For mammograms, a report in lay terms will be sent to the patient. Approximately 15% of breast malignancies will not be visualized mammographically. In the management of a palpable breast mass, a negative mammogram must not discourage biopsy of a clinically suspicious lesion. Electronically Signed By: Seun Meadows M.D. slc/:03/08/2023 12:53:22 letter sent: No_Letter ACR BI-RADS Category 2: Benign Finding(s) 3342F PARENCHYMAL PATTERN: (A) - The breast(s) demonstrate(s) scattered fibroglandular densities. BI-RADS CATEGORY: (2) - 2 Mammogram [id number] 1 year screening LATERALITY: (B)
== END 2023-03-08 10:38 | disposition home or self-care (01) ==
LOC: DI 10:37
PROVIDERS: ATTEND Nurse Practitioner
DX: N64.4 Mastodynia (principal); Q87.89 Other specified congenital malformation syndromes, not elsewhere classified

== ENCOUNTER 2023-04-05 19:05 | Emergency (ER) | payer MEDICAID ==
[2023-04-05 19:23] VITALS: BP 145/74
--- NOTE | 2023-04-05 19:31 | ED Physician Documentation ---
History of Present Illness - Stated complaint Stated Complaint: L TOE INJ - Chief complaint Chief Complaint: Trauma Ext - Additonal information Additional information: 37-year-old female presents emergency department for evaluation of acute left lateral foot pain. She stubbed her small toe on a rigid cardboard box about 06/09/1930 this afternoon. She has a history of recurrent foot and toe injuries as well as surgeries on this foot. 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: Oophrectomy - Present Medications Home Medications: Ambulatory Orders Medication Instructions Recorded Confirmed Azithromycin [Zithromax] 250 mg PO DAILY #6 tablet 12/19/17 Meclizine HCl [Motion Sickness 25 mg PO Q6HR PRN #20 tablet 12/19/17 Relief] Amoxicillin 500 mg PO TID #21 capsule 10/08/20 Cetirizine [ZyrTEC] 10 mg PO DAILY #15 tablet 10/08/20 Meclizine HCl [Antivert] 25 mg PO Q8H PRN #20 tablet 10/08/20 dexAMETHasone [Decadron] 4 mg PO DAILY #5 tablet 10/08/20 Metoclopramide [Reglan] 10 mg PO Q6H PRN #20 tablet 02/28/22 Neomycin/Polymyx/Hc Otic Drops 4 drops OT TID #1 bottle 02/28/22 [Cortisporin Ear Susp] HYDROcod/ACETAM 5/325 [Flomaton 5/325] 1 tablet PO BID PRN #5 tablet 04/05/23 - Allergies Allergies/Adverse Reactions: Allergies Allergy/AdvReac Type Severity Reaction Status Date / Time adhesive AdvReac Itching Verified 04/05/23 19:20 chlorhexidine AdvReac Unknown Verified 04/05/23 19:20 [From Hibiclens] - Social History Does the pt smoke?: No Smoking Status: Never smoker Does the pt drink ETOH?: No Does the pt have substance abuse?: No - Immunizations Immunizations are current?: Yes - POLST Patient has POLST: No PD ED PE EXPANDED - Extremities Extremities: Left foot (Tenderness with palpation of the left lateral foot no swelling or ecchymosis. Most of the tenderness elicited with palpation of the small toe and at that MCP joint note. No pain at the base of the fifth metatarsal. No obvious deformity 2+ PD pulse) Results - Vitals Vitals: Vital Signs - 24 hr 04/05/23 19:10 Temperature 36.7 C Heart Rate 96 Respiratory 18 Rate Blood Pressure 145/74 H O2 Saturation 98 Oxygen O2 Source Room air - Rads (name of study) left foot xr Relevant Findings:: Final report received (Probable nondisplaced proximal fifth phalanx impaction fracture. Immobilization reimaging 7 to 10 days is recommended. Diffuse demineralization advanced for patient stated age) PD Medical Decision Making - ED course Complexity details: reviewed results, d/w patient ED course: 2-year-old female here with acute left foot pain after stubbing her toe on a cardboard box. X-ray confirms a nondisplaced proximal small toe phalanx fracture. Patient is placed in a postop shoe and the toes vani taped. Recommended Tylenol and ibuprofen. Limited amount of hydrocodone sent to the patient's preferred pharmacy. We will follow-up with PCP for repeat imaging in 7 to 10 days. The usual emergent return precautions discussed I am prescribing a short course of short-acting opioid pain medication for this patient. I have reviewed the patients SHIFT SUPERINTENDENT and no concerning findings were noted. I have discussed that the opioids are for short term therapy only, and will not be refilled from the ED. Departure - Departure Disposition: 01 Home, Self Care Clinical Impression: Nondisp fx proximal phalanx lesser toe left foot w/delayed healing Qualifiers: Fracture type: closed Qualified Code(s): S92.515G - Nondisplaced fracture of proximal phalanx of left lesser toe(s), subsequent encounter for fracture with delayed healing Condition: Stable Instructions: ED Fx Foot Follow-Up: JUAREZ KING DO [Primary Care Provider] - Prescriptions: HYDROcod/ACETAM 5/325 [Flomaton 5/325] 1 tablet PO BID PRN #5 tablet PRN Reason: Pain Comments: You are seen today in the emergency department because you stubbed your left small toe on a heavy cardboard box. The radiologist feels that there may be a nondisplaced fracture of the proximal phalanx of your small toe. I do recommended that you vani tape this to the adjacent toe and wear the postop shoe. Radiology makes recommendation to have this joanie-rayed in about 7 to 10 days time. In general I would recommend they take Tylenol or ibuprofen [id number] for foot discomfort. For more severe pain I have sent a prescription for limited amount of Flomaton [facility] [place]. Return to the ER with any worsening symptoms I am prescribing a short course of narcotic pain medication for you. These are potentially dangerous and addictive medications that should be used carefully. These medications may constipate you. Take an xhjv-xeb-[id number] stool softener (docusate) twice daily with plenty of water while taking these medications. If you go 24 hours without a bowel movement, take [id number] miralax, per package instructions. Do not drink or drive while taking these medications. If you received narcotic or sedating medications while in the emergency department, do not drive for 24 hours. Store this medication in a safe, secure place and out of reach of children. It is a violation of federal law to give or sell this medication to another person or to use in a manner other than prescribed. The ED will not refill narcotic prescriptions, including prescriptions lost or stolen. To dispose of unwanted medications: 1. [facility] [address] in [place] has a medication drop box. They accept prescription medications (in pill form) Monday through Monday 9:00 a.m. to 5:00 p.m. 2. [facility] accepts prescription medications (in pill form only) for disposal year round. Call for more information. 3. Contact the [facility] for the next [facility] sponsored prescription drug collection event. , [phone], or [phone]; Note that many narcotic pain relievers also contain Tylenol/acetaminophen. Please ensure that your total dose of acetaminophen from all sources does not exceed 3 g (3000 mg) per day.
--- OUTSIDE RECORDS SUMMARY | 2023-04-05 19:33 | EXTERNAL MEDICAL SUMMARY RPT | Continuity of Care Document ---
Author Name Unknown Address [address] [place] [address] Phone Organization [facility] Address [address] [place] [address] Phone Care Team Providers Care Director Of Architecture Name Role Phone Unavailable Unavailable Unavailable Shannan Bartholomew Unavailable Unavailluis angel Ceballos Md, Kiran Unavailable Unavailable Medications date description facility 2023-01-26 00:00 estradiol All 2023-01-26 00:00 estradiol All 2023-01-26 00:00 estradiol All 2023-01-26 00:00 estradiol All 2023-01-26 00:00 estradiol All 2023-01-26 00:00 estradiol All 2023-01-26 00:00 estradiol All 2023-01-26 00:00 estradiol All Problems date description facility 2023-01-26 00:00 Breast tenderness All 2023-01-26 00:00 Breast tenderness All 2023-01-26 00:00 Gynecologic examination All 2023-01-26 00:00 Gynecologic examination All 2023-01-26 00:00 Mastodynia All 2023-01-26 00:00 Mastodynia All 2023-01-26 00:00 Encounter for gyneco logical examination (general) (routine) without abnormal findings All 2023-01-26 00:00 Encounter for gyneco logical examination (general) (routine) without abnormal findings All 2023-01-28 00:00 Atrophy of vagina All 2023-01-28 00:00 Postmenopausal atrophic vaginit is All Procedures date description facility 2023-01-26 00:00 Visit Code Hold All 2023-01-26 00:00 Visit Code Hold All Vital Signs date measurement value units 2023-01-26 00:00 BMI 41.35 kg/m2 2023-01-26 00:00 BP_diastolic 74 mmHg 2023-01-26 00:00 BP_systolic 124 mmHg 2023-01-26 00:00 height_metric 175.26 cm 2023-01-26 00:00 height_standard 69 in 2023-01-26 00:00 temperature_metric 36.67 C 2023-01-26 00:00 temperature_standard 98 F 2023-01-26 00:00 weight_metric 126.55 kg 2023-01-26 00:00 weight_standard 279 lb
[2023-04-05] MEDS ORDERED: IBUPROFEN 600 MG TABLET PO STA (20:29)
--- NOTE | 2023-04-05 20:31 | XRAY Report ---
PROCEDURE: Foot 3 View LT INDICATIONS: pain; ? fx TECHNIQUE: 3 views of the foot were acquired. COMPARISON: None. FINDINGS: Bones: Diffuse demineralization. 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 There is a probable nondisplaced impaction fracture at the mid diaphysis o f the fifth proximal phalanx.. Soft tissues: No suspicious soft tissue calcifications or masses. IMPRESSION: 1. Probable nondisplaced proximal fifth phalanx impaction fracture. Immobilization and reimaging in 7 -10 days for confirmation is recommended. 2. Diffuse demineralization advanced for patient's stated age. Reviewed by: Joaquina Li MD on 04/05/2023 8:30 PM PDT Approved by: Joaquina Li MD on 04/05/2023 8:30 PM PDT Station ID: [id number]
== END 2023-04-05 21:26 | disposition home or self-care (01) ==
LOC: ED 19:05
DX: S92.515A Nondisplaced fracture of proximal phalanx of left lesser toe(s), initial encounter for closed fracture (principal); W22.09XA Striking against other stationary object, initial encounter
CPT/HCPCS: 73630; 99283; A9270

== ENCOUNTER 2023-06-19 14:42 | Emergency (ER) | payer MEDICAID ==
[2023-06-19 15:02] VITALS: BP 140/79; O2SAT 98
--- NOTE | 2023-06-19 15:28 | ED Physician Documentation ---
PD HPI FEMALE - Stated complaint Stated Complaint: - Chief complaint Chief Complaint: Wound - History obtained from History obtained from: Patient - Additional information Additional information: 38-year-old female presents for evaluation of left labial pain and swelling. Patient states that she has had a chronic knot on her left labia that is followed by [facility]. She has been told in the past that this is not a worrisome lesion and she can have it cosmetically removed on an outpatient basis. She states that last night she thought she saw a head to the area and squeezed it, however nothing came out. Today the area is red and swollen and she is concerned it may be an underlying abscess. Review of Systems Constitutional: denies: Fever, Chills GI: denies: Abdominal Pain, Nausea, Vomiting : denies: Dysuria, Frequency, Hesitancy, Unable to Void, Incontinent, Hematuria, Discharge Skin: reports: Rash. denies: Lesions, Abrasion (s), Laceration (s) PD PAST MEDICAL HISTORY - Past Medical History Cardiovascular: None Respiratory: None Endocrine/Autoimmune: None GI: None TOOL PROCUREMENT COORDINATOR: None : None HEENT: None Psych: None Musculoskeletal: None Derm: Other - Past Surgical History Past Surgical History: Yes /TOOL PROCUREMENT COORDINATOR: Oophrectomy - Present Medications Home Medications: Ambulatory Orders Medication Instructions Recorded Confirmed Azithromycin [Zithromax] 250 mg PO DAILY #6 tablet 12/19/17 Meclizine HCl [Motion Sickness 25 mg PO Q6HR PRN #20 tablet 12/19/17 Relief] Amoxicillin 500 mg PO TID #21 capsule 10/08/20 Cetirizine [ZyrTEC] 10 mg PO DAILY #15 tablet 10/08/20 Meclizine HCl [Antivert] 25 mg PO Q8H PRN #20 tablet 10/08/20 dexAMETHasone [Decadron] 4 mg PO DAILY #5 tablet 10/08/20 Metoclopramide [Reglan] 10 mg PO Q6H PRN #20 tablet 02/28/22 Neomycin/Polymyx/Hc Otic Drops 4 drops OT TID #1 bottle 02/28/22 [Cortisporin Ear Susp] HYDROcod/ACETAM 5/325 [[place] 5/325] 1 tablet PO BID PRN #5 tablet 04/05/23 Doxycycline Hyclate 100 mg PO BID #14 cap 06/19/23 HYDROcod/ACETAM 5/325 [[place] 5/325] 1 tablet PO BID PRN #15 tablet 06/23/23 - Allergies Allergies/Adverse Reactions: Allergies Allergy/AdvReac Type Severity Reaction Status Date / Time adhesive AdvReac Itching Verified 06/19/23 15:02 chlorhexidine AdvReac Unknown Verified 06/19/23 15:02 [From Hibiclens] - Social History Does the pt smoke?: No Smoking Status: Never smoker Does the pt drink ETOH?: No Does the pt have substance abuse?: No - Immunizations Immunizations are current?: Yes - POLST Patient has POLST: No PD ED PE NORMAL - Vitals Vital signs reviewed: Yes - General General: Alert and oriented X 3, No acute distress, Well developed/nourished - HEENT HEENT: Atraumatic - Neck Neck: Supple, no meningeal sign, No JVD - Cardiac Cardiac: RRR, No murmur, Strong equal pulses - Respiratory Respiratory: No respiratory distress, Clear bilaterally - Abdomen Abdomen: Soft, Non tender, Non distended - Female Female : Radiologic Technology Program Director present, Other (large external labial induration and swelling. No fluctuance) - Back Back: No CVA TTP, No spinal TTP - Derm Derm: Warm and dry, Other (large area of induration and erythema L labia majora) - Extremities Extremities: No deformity, No tenderness to palpate, Normal ROM s pain - Neuro Neuro: Alert and oriented X 3, registered respiratory therapist 2-12 intact, No motor deficit, Normal speech - Psych Psych: Normal mood, Normal affect Results - Vitals Vitals: Oxygen O2 Source Room air PD Medical Decision Making - ED course Complexity details: re-evaluated patient, considered differential, d/w patient ED course: Large area of induration of left labia majora. The region was palpated, there is no fluctuance or obvious drainable fluid collection to suggest abscess. Due to the extensive induration and minimal fluctuance no utility do incision and drainage at this time. Patient was counseled on diagnosis, will discharge with antibiotics. She was counseled to use warm compresses multiple times daily. She already has follow-up with [facility] scheduled in 48 hours. Departure - Departure Disposition: 01 Home, Self Care Clinical Impression: Cellulitis of labia Condition: Stable Instructions: Cellulitis Dc, ED Infec Skin Cellulitis Prescriptions: Doxycycline Hyclate 100 mg PO BID #14 cap HYDROcod/ACETAM 5/325 [[place] 5/325] 1 tablet PO BID PRN #15 tablet PRN Reason: Pain Comments: Today the area on your labia does appear to be infected, however I do not palpate any abscess. If the water at your home does not allow you to perform sits baths then I recommend warm compresses multiple times per day. Take a picture when you get home of the area and show your [facility] when you see them on Monday. Take all antibiotics as prescribed. You have also been given pain medications, do not take these medications with alcohol or prior to operating heavy machinery such as your vehicle. Your prescriptions have been sent to [facility] in [place]. Forms: PCP List Discharge Date/Time: 06/19/23 16:13
--- NOTE | 2023-06-23 12:12 | ED Physician Documentation ---
ED Addendum - Addendum Addendum: 06/23/23 12:11 I was notified by [facility] pharmacy that the patient had presented to central supply supervisor the prescription for doxycycline but the pharmacist at [facility] notify me that the prescription for hydrocodone originally entered by Dr. Irby had not been received. Patient was initially seen in this emergency department June 19, 2023. Subsequently I chose to cancel Dr. Irby's hydrocodone order and represcribed and electronically sent prescription to [facility] as it seemed appropriate given the patient's presentation and diagnosis.
== END 2023-06-19 16:13 | disposition home or self-care (01) ==
LOC: ED 14:42
DX: N76.2 Acute vulvitis (principal)
CPT/HCPCS: 99282; 99283

== ENCOUNTER 2024-01-11 09:02 | Emergency (ER) | payer MEDICAID ==
--- NOTE | 2024-01-11 09:53 | XRAY Report ---
PROCEDURE: Chest 1V INDICATIONS: cough TECHNIQUE: One view of the chest was acquired. COMPARISON: 10/15/2017. FINDINGS: Surgical changes and devices: None. Lungs and pleura: No pleural effusions or pneumothorax. Lungs are clear. Mediastinum: Mediastinal contours appear normal. Heart size is normal. Bones and chest wall: No suspicious bony lesions. Overlying soft tissues appear unremarkable. IMPRESSION: No acute cardiopulmonary process. Reviewed by: Davion Chandra MD on 01/11/2024 9:52 AM PDT Approved by: Davion Chandra MD on 01/11/2024 9:52 AM PDT Station ID: [id number]
[2024-01-11 10:31] LABS: B. PARAPERTUSSIS- RESP PCR PAN NOT DETECTED; B. PERTUSSIS- RESP PCR PANEL NOT DETECTED; C. PNEUMONIAE- RESP PCR PANEL NOT DETECTED; CORONAVIRUS 229E-RESP PCR NOT DETECTED; CORONAVIRUS HKU1-RESP PCR DETECTED; CORONAVIRUS NL63-RESP PCR NOT DETECTED; CORONAVIRUS OC43-RESP PCR NOT DETECTED; HUMAN METAPNEUMOVIRUS NOT DETECTED; INFLUENZA A- RESP PCR PANEL NOT DETECTED; INFLUENZA B - RESP PCR PANEL NOT DETECTED; M. PNEUMONIAE- RESP PCR PANEL NOT DETECTED; PARAINFLUENZA VIRUS 1 NOT DETECTED; PARAINFLUENZA VIRUS 2 NOT DETECTED; PARAINFLUENZA VIRUS 3 NOT DETECTED; PARAINFLUENZA VIRUS 4 NOT DETECTED; RHINOVIRUS/ENTEROVIRUS NOT DETECTED; RSV- RESP PCR PANEL NOT DETECTED; SARS-CoV-2 -RESP PCR PANEL NOT DETECTED
[2024-01-11] MEDS: predniSONE 20 MG TABLET PO STA (10:57)
[2024-01-11] MEDS: IPRATROPIUM/ALBUTEROL 3 ML NEB INH STA (11:00)
--- NOTE | 2024-01-11 11:37 | ED Physician Documentation ---
PD HPI URI - Stated complaint Stated Complaint: RIB PX/SOA - Chief complaint Chief Complaint: Resp - History obtained from History obtained from: Patient - Additional information Additional information: Patient is a 38-year-old female presenting for evaluation of cough and congestion for the past 1 week. Patient states her cough and congestion are productive of yellow mucus. She has been trying [id number] Mucinex and [place] cold and flu without any improvement. Denies fever. She does have other family members ill with similar symptoms. Left-sided chest pain with coughing. Denies history of asthma or COPD.Denies hemoptysis. No recent travel or immobilization, history of PE or DVT, leg swelling or pain. Review of Systems Constitutional: denies: Fever Nose: reports: Congestion Cardiac: reports: Chest pain / pressure Respiratory: reports: Cough GI: denies: Abdominal Pain, Vomiting PD PAST MEDICAL HISTORY - Past Medical History Past Medical History: Yes Cardiovascular: None Respiratory: None Neuro: None Endocrine/Autoimmune: None GI: None YARD PERSON: None : None HEENT: None Psych: Depression Musculoskeletal: None Derm: Other - Past Surgical History Past Surgical History: Yes /YARD PERSON: Oophrectomy - Present Medications Home Medications: Ambulatory Orders Medication Instructions Recorded Confirmed Albuterol Sulf [Ventolin Hfa 1 - 2 puffs INH Q4HR PRN #1 each 01/11/24 Inhaler] Estrogens,Esterified [Menest] 1 tab PO DAILY 01/11/24 01/11/24 Sertraline HCl 100 mg PO DAILY 01/11/24 01/11/24 guaiFENesin/CODEINE [Robitussin AC] 5 - 10 ml PO Q6H PRN #120 ml 01/11/24 predniSONE [Deltasone] 60 mg PO DAILY 4 Days #12 tablet 01/11/24 - Allergies Allergies/Adverse Reactions: Allergies Allergy/AdvReac Type Severity Reaction Status Date / Time adhesive AdvReac Itching Verified 01/11/24 09:18 chlorhexidine AdvReac Unknown Verified 01/11/24 09:18 [From Hibiclens] - Social History Does the pt smoke?: No Smoking Status: Never smoker Does the pt drink ETOH?: No Does the pt have substance abuse?: No - Immunizations Immunizations are current?: Yes - POLST Patient has POLST: No PD ED PE NORMAL - General General: Alert and oriented X 3, No acute distress, Well developed/nourished - HEENT HEENT: Atraumatic, Moist mucous membranes, Pharynx benign - Neck Neck: Supple, no meningeal sign - Cardiac Cardiac: RRR, Strong equal pulses, Other (Left-sided chest wall tenderness, no bruising, no rash) - Respiratory Respiratory: No respiratory distress, Other (Diminished breath sounds bilaterally with some wheezing, frequent coughing With inspiration) - Abdomen Abdomen: Normal bowel sounds, Soft, Non tender, Non distended - Derm Derm: Warm and dry - Extremities Extremities: No edema, No calf tenderness / cord - Neuro Neuro: Normal speech Results - Vitals Vitals: Vital Signs - 24 hr 01/11/24 01/11/24 01/11/24 09:12 11:03 11:20 Temperature 36.8 C Heart Rate 96 88 97 Respiratory 16 18 2 L Rate Blood Pressure 130/83 H 132/73 H O2 Saturation 97 96 01/11/24 01/11/24 11:54 11:57 Temperature Heart Rate 93 94 Respiratory 15 20 Rate Blood Pressure 131/77 H 131/77 H O2 Saturation 100 95 Oxygen O2 Source Room air - EKG (time done) 1051 EKG releavant findings:: EKG personally interpreted by author of this note. Relevant findings are: - Labs Labs: Laboratory Tests 01/11/24 09:23 Nasal Adenovirus (PCR) NOT DETECTED Nasal B. parapertussis DNA (PCR) NOT DETECTED Nasal Coronavir 229E PCR NOT DETECTED Nasal Coronavir HKU1 PCR DETECTED A Nasal Coronavir NL63 PCR NOT DETECTED Nasal Coronavir OC43 PCR NOT DETECTED Nasal Enterovir/Rhinovir PCR NOT DETECTED Nasal Influenza B PCR NOT DETECTED Nasal Influenza A PCR NOT DETECTED Nasal Parainfluen 1 PCR NOT DETECTED Nasal Parainfluen 2 PCR NOT DETECTED Nasal Parainfluen 3 PCR NOT DETECTED Nasal Parainfluen 4 PCR NOT DETECTED Nasal RSV (PCR) NOT DETECTED Nasal B.pertussis DNA PCR NOT DETECTED Nasal C.pneumoniae (PCR) NOT DETECTED Kieran Human Metapneumo PCR NOT DETECTED Nasal M.pneumoniae (PCR) NOT DETECTED Nasal SARS-CoV-2 (PCR) NOT DETECTED PD Medical Decision Making - ED course Complexity details: reviewed results, d/w patient ED course: Patient is a 38-year-old female presenting for evaluation of URI symptoms. Mildly diminished breath sounds bilaterally with some wheezing. Patient was gi becca a neb treatment and p.o. prednisone with improvement. Chest x-ray which I reviewed is negative for consolidation. Did report having some left-sided chest pain with coughing and that because of her age I did obtain an EKG which shows a normal sinus rhythm and no signs of acute ischemia. Doubt ACS or need for further testing as her symptoms seem infectious in etiology. Respiratory swab is positive for non-COVID coronavirus. I discussed treatment for bronchitis with albuterol inhaler, prednisone as well as cough medication. Do not see indication for antibiotics at this time. No risk factors for pulmonary embolism. Patient counseled on treatment plan as well as concerning symptoms to return for. Departure - Departure Disposition: 01 Home, Self Care Clinical Impression: Bronchitis, Coronavirus infection Condition: Stable Instructions: ED Bronchitis Asthmatic Prescriptions: Albuterol Sulf [Ventolin Hfa Inhaler] 1 - 2 puffs INH Q4HR PRN #1 each PRN Reason: Shortness Of Air/Wheezing predniSONE [Deltasone] 60 mg PO DAILY 4 Days #12 tablet guaiFENesin/CODEINE [Robitussin AC] 5 - 10 ml PO Q6H PRN #120 ml PRN Reason: Cough Comments: Your testing today shows that you are positive for a coronavirus that is not COVID. At this causes symptoms of the common cold. Your chest x-ray does not show pneumonia. You do have symptoms of bronchitis. I sent prescriptions for albuterol inhaler, course of steroids as well as a cough medication to [facility] in [place].Continue to stay hydrated. Return to the ER with any worsening symptoms. Forms: PCP List Discharge Date/Time: 01/11/24 11:59
[2024-01-11 12:03] VITALS: BP 131/77; O2SAT 95
== END 2024-01-11 11:59 | disposition home or self-care (01) ==
LOC: ED 09:02
DX: J40 Bronchitis, not specified as acute or chronic (principal); B34.2 Coronavirus infection, unspecified
CPT/HCPCS: 71045; 87633; 93005; 94640; 94664; 99284; J7512